=== PATIENT | female | born 1965 | race Asian ===

== ENCOUNTER 2024-03-14 20:53 | Inpatient (IN) | payer OTHER ==
[~2024-03-14] VITALS: Ht 154.9 cm; Wt 57.5 kg
[2024-03-14] MEDS ORDERED: MULT-248 GT (21:33)
[2024-03-14] MEDS ORDERED: CHOL25TA4 GT (21:33)
[2024-03-14] MEDS ORDERED: CEFT1VIA65 IV (21:33)
[2024-03-14 23:12] LABS: BASOPHILS % (AUTO) 0.6 % (0.0-2.0); EOSINOPHILS % (AUTO) 5.2 % (1.0-6.0); HEMATOCRIT 40.2 % (36-46); HEMOGLOBIN 13.4 g/dL (12.0-16.0); LYMPHOCYTES # (AUTO) 2.3 K/uL (1.0-4.8); MEAN CORPUSCULAR HGB CONC 33.2 G/dL (31.0-37.0); MEAN CORPUSCULAR VOLUME 90 fL (80-100); MONOCYTES # (AUTO) 0.5 K/uL (0.1-1.0); MONOCYTES % (AUTO) 5.9 % (2.0-9.0); NEUTROPHILS # (AUTO) 5.6 K/uL (1.8-7.7); NEUTROPHILS % (AUTO) 62.3 % (40.0-70.0); PLATELET COUNT (AUTO) 345 K/uL (150-450); RED BLOOD CELL COUNT(AUTO) 4.45 MIL/uL (4.00-5.20); RED CELL DISTRIBUTION WIDTH 15.3 % (11.5-14.5); WHITE BLOOD COUNT (AUTO) 8.9 K/uL (4.5-11.0)
[2024-03-14 23:22] LABS: ANION GAP 8 mmol/L (8-16); CARBON DIOXIDE 30 mmol/L (22-29); CHLORIDE 95 mmol/L (98-107); CREATININE 0.53 mg/dL (0.60-1.30); GLOMERULAR FILTR. RATE CALC > 60 mL/min (>60); GLUCOSE,RANDOM 91 mg/dL (70-110); POTASSIUM 4.5 mmol/L (3.5-5.1); SODIUM SERUM 133 mmol/L (136-145); UREA NITROGEN, BLOOD 11 mg/dL (7-18)
[2024-03-14] MEDS ORDERED: ASPI81TA87 GT (23:25)
[2024-03-14] MEDS ORDERED: ONDANSETRON HCL 4 MG/2 ML VIAL IVP PRN (23:30)
[2024-03-14] MEDS ORDERED: DEXTROSE 5%-LACTATED RINGERS 1,000 ML IV ONE (23:30)
[2024-03-14 23:40] LABS: PROTHROMBIN TIME 10.3 SEC (9.4-11.6)
[2024-03-15] MEDS ORDERED: DIATRIZOATE MEGLU/SOD 660/100 MG/ML 120 ML BOTTLE PO ONE
[2024-03-15] MEDS ORDERED: HEPARIN SODIUM,PORCINE 5,000 UNITS/ML VIAL SQ SCH
[2024-03-15] MEDS ORDERED: IOHEXOL 240 MG/ML 50 ML VIAL ONE (00:24)
[2024-03-15] MEDS: IOHEXOL 240 MG/ML 50 ML VIAL PO ONE (01:18)
[2024-03-15] MEDS ORDERED: CefTRIAXone 1 GM/DEXTROSE 50 ML IV SCH (02:00)
[2024-03-15 02:42] VITALS: BP 127/69; PULSE 69; RESP 15; TEMP 97.3; O2SAT 96
[2024-03-15] MEDS ORDERED: ASPIRIN 81 MG CHEWABLE TABLET GT SCH (09:00)
[2024-03-15] MEDS ORDERED: MULTIVITAMINS WITH MINERALS, THERAPEUTIC 15 ML UDCUP GT SCH (09:00)
[2024-03-15] MEDS ORDERED: CefTRIAXone SODIUM 1 GM/VIAL IV SCH (09:00)
[2024-03-15] MEDS ORDERED: CHOLECALCIFEROL (VIT D3) 1,000 UNITS [25 MCG] TABLET GT SCH (09:00)
== END 2024-03-15 02:42 | DRG 252 ==
LOC: EMS 20:53 → EDH 23:50
PROVIDERS: ADMIT Internal Medicine; ATTEND Internal Medicine
PROC: 0DP6XUZ Removal of Feeding Device from Stomach, External Approach (ICD-10-PCS; principal; 2024-03-14)
PROC: 0DH63UZ Insertion of Feeding Device into Stomach, Percutaneous Approach (ICD-10-PCS; 2024-03-14)
PROC: BT041ZZ Plain Radiography of Kidneys, Ureters and Bladder using Low Osmolar Contrast (ICD-10-PCS; 2024-03-14)
DX: K94.23 Gastrostomy malfunction (principal); R47.01 Aphasia; H54.61 Unqualified visual loss, right eye, normal vision left eye; Z86.73 Personal history of transient ischemic attack (TIA), and cerebral infarction without residual deficits
CPT/HCPCS: 74018; 80048; 85025; 85610; 85730; 99285; G0378; Q9966; 36415-L1; 36415-TC